=== PATIENT | male | born 1955 | race American Indian/Alaskan Native ===

== ENCOUNTER 2016-11-15 16:36 | Emergency (ER) | payer SELFPAY ==
[2016-11-15 16:56] VITALS: BP 138/87
--- NOTE | 2016-11-16 09:00 | XRay Report ---
Left hand 2 views: History: Injury to left hand. Findings: No articular abnormality. No fracture or dislocation. Impression: No evidence of acute fracture.
== END 2016-11-16 00:37 | disposition left against medical advice (07) ==
LOC: ED 16:36
DX: M79.642 Pain in left hand (principal); Z53.21 Procedure and treatment not carried out due to patient leaving prior to being seen by health care provider

== ENCOUNTER 2017-08-26 17:18 | Inpatient (IN) | payer SELFPAY ==
[2017-08-26] MEDS ORDERED: ASPIRIN PO ONE (17:33)
[2017-08-26 18:27] LABS: Hematocrit 39.3 % (35.5-45.6); Hemoglobin 12.8 gm/dl (11.8-15.2); Mean Corpuscular HGB Conc 33 % (32-34); Mean Corpuscular Hemoglobin 32 pg (28-32); Mean Corpuscular Volume 97 fl (84-94); Platelet Count 370 K/mm3 (140-440); Red Blood Count 4.04 M/mm3 (3.65-5.03); Red Cell Distribution Width 14.8 % (13.2-15.2)
[2017-08-26 18:43] LABS: BUN/Creatinine Ratio 20; Blood Urea Nitrogen 22 mg/dL (9-20); Calcium 9.3 mg/dL (8.4-10.2); Hemolysis Index 10
[2017-08-26 20:08] LABS: Basophils % (Manual) 0 % (0.0-1.8); Total Cells Counted 100
[2017-08-26 20:09] LABS: Anisocytosis 1+; Poikilocytosis 1+
--- NOTE | 2017-08-26 21:09 | Emergency Department Report ---
<HUGO PHILIPPE - Last Filed: 08/26/17 22:00> ED Chest Pain HPI - General Chief Complaint: Chest Pain Stated Complaint: CHEST PAIN Source: patient Mode of arrival: Ambulatory Limitations: No Limitations - History of Present Illness Initial Comments: 62-year-old male with a past medical history CVA, diabetes, hypertension, and elevated cholesterol. Pt presnts to the hospital with complaints of chest pain for 3-4 days. Pain is at the center of his chest, sticking, and sensation is intermittent. Worse with lying supine. He denies pain with deep inspiration, cough, shortness of breath, calf tenderness, or edema. 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 Patient states for the past week his heart rate has also been elevated range between 91 and 107. Patient has used cocaine but not within 10 years. Patient has a history of alcohol use every other day and denies history of withdrawal symptoms. Severity scale (0 -10): 0 - Related Data Home Medications Medication Instructions Recorded Confirmed Last Taken Aspirin [Aspirin TAB] 325 mg PO QDAY 08/13/13 08/13/13 08/12/13 Atorvastatin Calcium [Lipitor] 20 mg PO HS 08/13/13 08/13/13 08/12/13 Lisinopril/Hydrochlorothiazide 20 - 25 mg PO DAILY 08/13/13 08/13/13 08/12/13 [Zestoretic 20-25 mg] Metformin HCl [metFORMIN ER] 1,000 mg PO BID 08/13/13 08/13/13 08/12/13 Sitagliptin Phosphate [Januvia] 100 mg PO DAILY 08/13/13 08/13/13 Unknown Previous Rx's Medication Instructions Recorded Last Taken Type Cephalexin [Keflex] 500 mg PO Q6H #40 capsule 10/14/13 Unknown Rx HYDROcodone/APAP 5-325 [[place] 1 each PO Q6HR PRN #20 tablet 10/14/13 Unknown Rx 5/325 mg] Allergies Allergy/AdvReac Type Severity Reaction Status Date / Time No Known Allergies Allergy Verified 11/15/16 16:51 Heart Score - HEART Score History: Slightly suspicious EKG: Non-specific Age: 45-65 Risk factors: > 3 risk factors or hx of atherosclerotic disease Troponin: < normal limit HEART Score: 4 ED Review of Systems ROS: Stated complaint: CHEST PAIN Other details as noted in HPI Comment: All other systems reviewed and negative ED Past Medical Hx - Past Medical History Previous Medical History?: Yes Hx Hypertension: Yes Hx CVA: Yes Hx Congestive Heart Failure: No Hx Diabetes: Yes Hx Asthma: No Hx COPD: No Hx HIV: No Additional medical history: High Cholesterol - Surgical History Past Surgical History?: No - Social History Smoking Status: Former Smoker Substance Use Type: Alcohol - Medications Home Medications: Home Medications Medication Instructions Recorded Confirmed Last Taken Type Aspirin [Aspirin TAB] 325 mg PO QDAY 08/13/13 08/13/13 08/12/13 History Atorvastatin Calcium [Lipitor] 20 mg PO HS 08/13/13 08/13/13 08/12/13 History Lisinopril/Hydrochlorothiazide 20 - 25 mg PO DAILY 08/13/13 08/13/13 08/12/13 History [Zestoretic 20-25 mg] Metformin HCl [metFORMIN ER] 1,000 mg PO BID 08/13/13 08/13/13 08/12/13 History Sitagliptin Phosphate [Januvia] 100 mg PO DAILY 08/13/13 08/13/13 Unknown History Cephalexin [Keflex] 500 mg PO Q6H #40 capsule 10/14/13 Unknown Rx HYDROcodone/APAP 5-325 [[place] 1 each PO Q6HR PRN #20 tablet 10/14/13 Unknown Rx 5/325 mg] ED Physical Exam - General Limitations: No Limitations - Other Other exam information: General: No limitations, patient is alert in no acute distress Head exam: Atraumatic, normocephalic Eyes exam: Normal appearance, pupils equal reactive to light, extraocular movements intact ENT: Moist mucous membrane, normal oropharynx Neck exam: Normal inspection, full range of motion, no meningismus nontender Respiratory exam: Clear to auscultation bilateral, no wheezes, rales, crackles Cardiovascular: Normal rate and rhythm, normal heart sounds Abdomen: Soft, nondistended, and nontender, with normal bowel sounds, no rebound, or guarding Extremity: Full range of motion normal inspection no deformity, no calf tenderness or edema Back: Normal Inspection, full range of motion, no tenderness Neurologic: Alert, oriented x3, cranial nerves intact, no motor or sensory deficit Psychiatric: normal affect, normal mood Skin: Warm, dry, intact ED Course Vital Signs 08/26/17 08/26/17 08/26/17 17:30 20:08 20:56 Temperature 98.5 F Pulse Rate 109 H Pulse Rate [ 94 H Sitting] Respiratory 18 18 Rate Blood Pressure 149/81 Blood Pressure 140/75 [Sitting] O2 Sat by Pulse 98 Oximetry - Reevaluation(s) Reevaluation #1: 08/26/17 21:51 Patient declined pain medication in the ED. Orthostatics are unremarkable. D- dimer is elevated. Patient be signed out to Nicholas Rogers. Ct angio and thyroid panel pending ARNULFO score - Arnulfo Score Age > 65: (0) No Aspirin use within the Past 7 Days: (0) No 3 or more CAD Risk Factors: (1) Yes 2 or more Angina events in past 24 hrs: (0) No Known CAD with more than 50% Stenosis: (0) No Elevated Cardiac Markers: (0) No ST Deviation Greater than 0.5mm: (0) No ARNULFO Score: 1 ED Medical Decision Making - Lab Data Result diagrams: 08/26/17 18:08 08/26/17 18:08 Lab Results 08/26/17 08/26/17 08/26/17 Range/Units 18:08 18:08 20:27 WBC 7.5 (4.5-11.0) K/mm3 RBC 4.04 (3.65-5.03) M/mm3 Hgb 12.8 (11.8-15.2) gm/dl Hct 39.3 (35.5-45.6) % MCV 97 H (84-94) fl MCH 32 (28-32) pg MCHC 33 (32-34) % RDW 14.8 (13.2-15.2) % Plt Count 370 (140-440) K/mm3 Eos % (Auto) Store Receiving Clerk Add Manual Diff Complete Total Counted 100 Seg Neuts % (Manual) 55.0 (40.0-70.0) % Band Neutrophils % 0 % Lymphocytes % (Manual) 21.0 (13.4-35.0) % Reactive Lymphs % (Man) 0 % Monocytes % (Manual) 8.0 H (0.0-7.3) % Eosinophils % (Manual) 16.0 H (0.0-4.3) % Basophils % (Manual) 0 (0.0-1.8) % Metamyelocytes % 0 % Myelocytes % 0 % Promyelocytes % 0 % Blast Cells % 0 % Nucleated RBC % Not Reportable Seg Neutrophils # Man 4.1 (1.8-7.7) K/mm3 Band Neutrophils # 0.0 K/mm3 Lymphocytes # (Manual) 1.6 (1.2-5.4) K/mm3 Abs React Lymphs (Man) 0.0 K/mm3 Monocytes # (Manual) 0.6 (0.0-0.8) K/mm3 Eosinophils # (Manual) 1.2 H (0.0-0.4) K/mm3 Basophils # (Manual) 0.0 (0.0-0.1) K/mm3 Metamyelocytes # 0.0 K/mm3 Myelocytes # 0.0 K/mm3 Promyelocytes # 0.0 K/mm3 Blast Cells # 0.0 K/mm3 WBC Morphology Not Reportable Hypersegmented Neuts Not Reportable Hyposegmented Neuts Not Reportable Hypogranular Neuts Not Reportable Smudge Cells Not Reportable Toxic Granulation Not Reportable Toxic Vacuolation Not Reportable Dohle Bodies Not Reportable Pelger-Huet Anomaly Not Reportable Ford Rods Not Reportable Platelet Estimate Appears normal Clumped Platelets Not Reportable Plt Clumps, EDTA Not Reportable Large Platelets Not Reportable Giant Platelets Not Reportable Platelet Satelliting Not Reportable Plt Morphology Comment Not Reportable RBC Morphology Not Reportable Dimorphic RBCs Not Reportable Polychromasia Not Reportable Hypochromasia Not Reportable Poikilocytosis 1+ Anisocytosis 1+ Microcytosis Not Reportable Macrocytosis Not Reportable Spherocytes Not Reportable Pappenheimer Bodies Not Reportable Sickle Cells Not Reportable Target Cells Not Reportable Tear Drop Cells Not Reportable Ovalocytes Not Reportable Helmet Cells Not Reportable Reyes-[place]upree Bodies Not Reportable [place] Rings Not Reportable [place] Cells Not Reportable Bite Cells Not Reportable Crenated Cell Not Reportable Elliptocytes Not Reportable Acanthocytes (Spur) Not Reportable Rouleaux Not Reportable Hemoglobin C Crystals Not Reportable Schistocytes Not Reportable Malaria parasites Not Reportable Mauricio Bodies Not Reportable Hem Pathologist Commnt No D-Dimer (0-234) ng/mlDDU Sodium 134 L (137-145) mmol/L Potassium 4.9 (3.6-5.0) mmol/L Chloride 93.8 L (98-107) mmol/L Carbon Dioxide 24 (22-30) mmol/L Anion Gap 21 mmol/L BUN 22 H (9-20) mg/dL Creatinine 1.1 (0.8-1.5) mg/dL Estimated GFR > 60 ml/min BUN/Creatinine Ratio 20 % Glucose 104 H (75-100) mg/dL Calcium 9.3 (8.4-10.2) mg/dL Troponin T < 0.010 < 0.010 (0.00-0.029) ng/mL 08/26/17 Range/Units 21:01 WBC (4.5-11.0) K/mm3 RBC (3.65-5.03) M/mm3 Hgb (11.8-15.2) gm/dl Hct (35.5-45.6) % MCV (84-94) fl MCH (28-32) pg MCHC (32-34) % RDW (13.2-15.2) % Plt Count (140-440) K/mm3 Eos % (Auto) Add Manual Diff Total Counted Seg Neuts % (Manual) (40.0-70.0) % Band Neutrophils % % Lymphocytes % (Manual) (13.4-35.0) % Reactive Lymphs % (Man) % Monocytes % (Manual) (0.0-7.3) % Eosinophils % (Manual) (0.0-4.3) % Basophils % (Manual) (0.0-1.8) % Metamyelocytes % % Myelocytes % % Promyelocytes % % Blast Cells % % Nucleated RBC % Seg Neutrophils # Man (1.8-7.7) K/mm3 Band Neutrophils # K/mm3 Lymphocytes # (Manual) (1.2-5.4) K/mm3 Abs React Lymphs (Man) K/mm3 Monocytes # (Manual) (0.0-0.8) K/mm3 Eosinophils # (Manual) (0.0-0.4) K/mm3 Basophils # (Manual) (0.0-0.1) K/mm3 Metamyelocytes # K/mm3 Myelocytes # K/mm3 Promyelocytes # K/mm3 Blast Cells # K/mm3 WBC Morphology Hypersegmented Neuts Hyposegmented Neuts Hypogranular Neuts Smudge Cells Toxic Granulation Toxic Vacuolation Dohle Bodies Pelger-Huet Anomaly Ford Rods Platelet Estimate Clumped Platelets Plt Clumps, EDTA Large Platelets Giant Platelets Platelet Satelliting Plt Morphology Comment RBC Morphology Dimorphic RBCs Polychromasia Hypochromasia Poikilocytosis Anisocytosis Microcytosis Macrocytosis Spherocytes Pappenheimer Bodies Sickle Cells Target Cells Tear Drop Cells Ovalocytes Helmet Cells Reyes-Dupree Bodies [place] Rings Foster Cells Bite Cells Crenated Cell Elliptocytes Acanthocytes (Spur) Rouleaux Hemoglobin C Crystals Schistocytes Malaria parasites Mauricio Bodies Hem Pathologist Commnt D-Dimer 618.76 H (0-234) ng/mlDDU Sodium (137-145) mmol/L Potassium (3.6-5.0) mmol/L Chloride (98-107) mmol/L Carbon Dioxide (22-30) mmol/L Anion Gap mmol/L BUN (9-20) mg/dL Creatinine (0.8-1.5) mg/dL Estimated GFR ml/min BUN/Creatinine Ratio % Glucose (75-100) mg/dL Calcium (8.4-10.2) mg/dL Troponin T (0.00-0.029) ng/mL - EKG Data -: EKG Interpreted by Ny EKG shows normal: sinus rhythm, axis (qrs 42), QRS complexes (qrsd 94), ST-T waves (no stemi/t inv) Rate: tachycardia (102) - EKG Data When compared to previous EKG there are: no significant change (08/13/13) - Medical Decision Making Pt pain is reproducible intermittent in sternum and slightly right parasternal chest wall pain. pain is exacerbated by lying supine. Patient denies associated symptoms. EKG unchanged from previous. Troponin negative 2. 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 CT angiogram pending. No signs of orthostatics with persistent tachycardia. If CT and have them negative for PE or other significant life-threatening condition. Given patient's elevated heart score he will be admitted for further cardiac workup given his significant cardiac risk factors. - Differential Diagnosis NM, atypical chest pain, PE, arrhythmia, thyroid, dehydration,pericarditis Critical Care Time: No Critical care attestation.: If time is entered above; I have spent that time in minutes in the direct care of this critically ill patient, excluding procedure time. ED Disposition Clinical Impression: Atypical chest pain Disposition: DC- OP ADMIT IP TO THIS HOSP Condition: Stable Instructions: Chest Pain (ED) <ANSELMO ROGERS - Last Filed: 08/27/17 00:09> ED Medical Decision Making - Lab Data Result diagrams: 08/26/17 18:08 08/26/17 18:08 - Medical Decision Making A/P: Atypical Chest pain 1-as directed by Dr. Philippe I followed up CT report and labs. CT negative for PE. Thyroid function tests unremarkable. 2-As pt has HEART Score of 4 will admit to hospital for further cardiac risk stratification and evaluation 3-I contacted on-call hospitalist . Dr. Slade states that she is behind on admissions at this time but will see pt, I will place bridging orders for admission. Dr. Philippe discussed this pt with Dr. Slade earlier before signing out pt to me. 4- patient is in agreement with current clinical plan ED Disposition Is pt being admited?: Yes Does the pt Need Aspirin: Yes
[2017-08-26 21:56] LABS: Free T4 (Free Thyroxine) 0.9 ng/dL (0.76-1.46)
[2017-08-26] MEDS ORDERED: NACL ONE (22:28)
--- NOTE | 2017-08-26 23:14 | Cat Scan Report ---
FINAL REPORT PROCEDURE: CT ANGIO CHEST TECHNIQUE: Computerized tomographic angiography of the chest was performed after the IV injection of iodinated nonionic contrast including image processing. The image data was postprocessed using 2-dimensional multiplanar reformatted (MPR) and 3-dimensional (MIP and/or volume rendered) techniques. HISTORY: chest pain + d-dimer COMPARISON: No prior studies are available for comparison. FINDINGS: Heart and pericardium: Coronary arterial calcification is noted.. Thoracic aorta: Normal. Pulmonary vasculature: Normal. Lymph nodes: No enlarged thoracic lymph nodes. Lungs: Normal. Pleural space: No effusion, thickening, or pneumothorax. Musculoskeletal structures: No significant abnormality. Upper abdominal structures: Moderate amount of residual stool is noted in the visualized abdomen. IMPRESSION: No evidence of pulmonary embolism No acute pulmonary process Coronary arterial calcification Moderate degree residual stool
[2017-08-27] MEDS ORDERED: BABY ASPIRIN PO ONE (00:09)
[2017-08-27] MEDS ORDERED: ULTRAM PO PRN (01:56)
[2017-08-27] MEDS ORDERED: NITROSTAT SL PRN (01:56)
[2017-08-27] MEDS ORDERED: SODIUM CHLORIDE FLUSH SYRINGE 10 ML IV PRN (01:56)
[2017-08-27] MEDS ORDERED: NACL 0.9% 1000 ML 1,000 ML IV SCH (03:00)
--- NOTE | 2017-08-27 03:04 | History and Physical Report ---
History of Present Illness Date of examination: 08/27/17 Date of admission: 08/27/17 00:10 Chief complaint: chest pain History of present illness: Patient is a 62-year-old -[place] male, who presented to the ED on account of few hours history of right-sided chest pain. He described it as dull in character, rated 4/10, nonradiating and constant in duration. No known aggravating or relieving factors. He has associated diaphoresis and palpitations. He denies fever or chills, cough, leg swelling, orthopnea or PND. No headaches, nausea, vomiting, dizziness, syncope or loss of consciousness. Past History Past Medical History: diabetes, hypertension, other (HLD, CVA) Past Surgical History: No surgical history Social history: alcohol abuse (for 50 years), other (an ex-smoker, quit 25 years ago. He denies illicit drug use) Family history: other (reviewed and noncontributory) Medications and Allergies Allergies Allergy/AdvReac Type Severity Reaction Status Date / Time No Known Allergies Allergy Verified 11/15/16 16:51 Home Medications Medication Instructions Recorded Confirmed Last Taken Type Aspirin [Aspirin TAB] 325 mg PO QDAY 08/13/13 08/13/13 08/12/13 History Atorvastatin Calcium [Lipitor] 20 mg PO HS 08/13/13 08/13/13 08/12/13 History Lisinopril/Hydrochlorothiazide 20 - 25 mg PO DAILY 08/13/13 08/13/13 08/12/13 History [Zestoretic 20-25 mg] Metformin HCl [metFORMIN ER] 1,000 mg PO BID 08/13/13 08/13/13 08/12/13 History Sitagliptin Phosphate [Januvia] 100 mg PO DAILY 08/13/13 08/13/13 Unknown History Cephalexin [Keflex] 500 mg PO Q6H #40 capsule 10/14/13 Unknown Rx HYDROcodone/APAP 5-325 [[place] 1 each PO Q6HR PRN #20 tablet 10/14/13 Unknown Rx 5/325 mg] Active Meds: Active Medications Aspirin (Baby Aspirin) 81 mg PO QDAY JANESSA Atorvastatin Calcium (Lipitor) 40 mg PO QHS JANESSA Sodium Chloride (Nacl 0.9% 1000 Ml) 1,000 mls @ 100 mls/hr IV DIRECT JANESSA Last Admin: 08/27/17 02:37 Dose: 100 mls/hr Nitroglycerin (Nitrostat) 0.4 mg SL Q5M PRN PRN Reason: Chest Pain Sodium Chloride (Sodium Chloride Flush Syringe 10 Ml) 10 ml IV PRN PRN PRN Reason: LINE FLUSH Last Admin: 08/27/17 02:37 Dose: 10 ml Tramadol HCl (Ultram) 50 mg PO Q6H PRN PRN Reason: Pain, Moderate (4-6) Review of Systems All systems: negative (except as documented in the HPI, all other systems were reviewed and negative) Exam - Constitutional Vitals: Temp Pulse Resp BP Pulse Ox 98.4 F 97 H 18 158/95 97 08/27/17 01:45 08/27/17 01:45 08/27/17 01:45 08/27/17 01:45 08/27/17 01:45 General appearance: Present: no acute distress, well-nourished - EENT Eyes: Present: PERRL, EOM intact ENT: hearing intact, clear oral mucosa - Neck Neck: Present: supple, normal ROM - Respiratory Respiratory effort: normal Respiratory: bilateral: CTA - Cardiovascular Rhythm: regular Heart Sounds: Present: S1 & S2. Absent: rub, click - Extremities Extremities: pulses symmetrical, No edema Peripheral Pulses: within normal limits - Abdominal General gastrointestinal: Present: soft, non-tender, non-distended, normal bowel sounds Localized gastrointestinal: tender: midline - Integumentary Integumentary: Present: clear, warm, dry - Musculoskeletal Musculoskeletal: gait normal, strength equal bilaterally - Psychiatric Psychiatric: appropriate mood/affect, intact judgment & insight - Neurologic Neurologic: CNII-XII intact, moves all extremities Results - Labs CBC & Chem 7: 08/26/17 18:08 08/26/17 18:08 Labs: Laboratory Last Values WBC 7.5 K/mm3 (4.5-11.0) 08/26/17 18:08 RBC 4.04 M/mm3 (3.65-5.03) 08/26/17 18:08 Hgb 12.8 gm/dl (11.8-15.2) 08/26/17 18:08 Hct 39.3 % (35.5-45.6) 08/26/17 18:08 MCV 97 fl (84-94) H 08/26/17 18:08 MCH 32 pg (28-32) 08/26/17 18:08 MCHC 33 % (32-34) 08/26/17 18:08 RDW 14.8 % (13.2-15.2) 08/26/17 18:08 Plt Count 370 K/mm3 (140-440) 08/26/17 18:08 Eos % (Auto) Depalletizer Operator 08/26/17 18:08 Add Manual Diff Complete 08/26/17 18:08 Total Counted 100 08/26/17 18:08 Seg Neuts % (Manual) 55.0 % (40.0-70.0) 08/26/17 18:08 Band Neutrophils % 0 % 08/26/17 18:08 Lymphocytes % (Manual) 21.0 % (13.4-35.0) 08/26/17 18:08 Reactive Lymphs % (Man) 0 % 08/26/17 18:08 Monocytes % (Manual) 8.0 % (0.0-7.3) H 08/26/17 18:08 Eosinophils % (Manual) 16.0 % (0.0-4.3) H 08/26/17 18:08 Basophils % (Manual) 0 % (0.0-1.8) 08/26/17 18:08 Metamyelocytes % 0 % 08/26/17 18:08 Myelocytes % 0 % 08/26/17 18:08 Promyelocytes % 0 % 08/26/17 18:08 Blast Cells % 0 % 08/26/17 18:08 Nucleated RBC % Not Reportable 08/26/17 18:08 Seg Neutrophils # Man 4.1 K/mm3 (1.8-7.7) 08/26/17 18:08 Band Neutrophils # 0.0 K/mm3 08/26/17 18:08 Lymphocytes # (Manual) 1.6 K/mm3 (1.2-5.4) 08/26/17 18:08 Abs React Lymphs (Man) 0.0 K/mm3 08/26/17 18:08 Monocytes # (Manual) 0.6 K/mm3 (0.0-0.8) 08/26/17 18:08 Eosinophils # (Manual) 1.2 K/mm3 (0.0-0.4) H 08/26/17 18:08 Basophils # (Manual) 0.0 K/mm3 (0.0-0.1) 08/26/17 18:08 Metamyelocytes # 0.0 K/mm3 08/26/17 18:08 Myelocytes # 0.0 K/mm3 08/26/17 18:08 Promyelocytes # 0.0 K/mm3 08/26/17 18:08 Blast Cells # 0.0 K/mm3 08/26/17 18:08 WBC Morphology Not Reportable 08/26/17 18:08 Hypersegmented Neuts Not Reportable 08/26/17 18:08 Hyposegmented Neuts Not Reportable 08/26/17 18:08 Hypogranular Neuts Not Reportable 08/26/17 18:08 Smudge Cells Not Reportable 08/26/17 18:08 Toxic Granulation Not Reportable 08/26/17 18:08 Toxic Vacuolation Not Reportable 08/26/17 18:08 Dohle Bodies Not Reportable 08/26/17 18:08 Pelger-Huet Anomaly Not Reportable 08/26/17 18:08 Ford Rods Not Reportable 08/26/17 18:08 Platelet Estimate Appears normal 08/26/17 18:08 Clumped Platelets Not Reportable 08/26/17 18:08 Plt Clumps, EDTA Not Reportable 08/26/17 18:08 Large Platelets Not Reportable 08/26/17 18:08 Giant Platelets Not Reportable 08/26/17 18:08 Platelet Satelliting Not Reportable 08/26/17 18:08 Plt Morphology Comment Not Reportable 08/26/17 18:08 RBC Morphology Not Reportable 08/26/17 18:08 Dimorphic RBCs Not Reportable 08/26/17 18:08 Polychromasia Not Reportable 08/26/17 18:08 Hypochromasia Not Reportable 08/26/17 18:08 Poikilocytosis 1+ 08/26/17 18:08 Anisocytosis 1+ 08/26/17 18:08 Microcytosis Not Reportable 08/26/17 18:08 Macrocytosis Not Reportable 08/26/17 18:08 Spherocytes Not Reportable 08/26/17 18:08 Pappenheimer Bodies Not Reportable 08/26/17 18:08 Sickle Cells Not Reportable 08/26/17 18:08 Target Cells Not Reportable 08/26/17 18:08 Tear Drop Cells Not Reportable 08/26/17 18:08 Ovalocytes Not Reportable 08/26/17 18:08 Helmet Cells Not Reportable 08/26/17 18:08 Reyes-[place] Bodies Not Reportable 08/26/17 18:08 [place] Rings Not Reportable 08/26/17 18:08 [place] Cells Not Reportable 08/26/17 18:08 Bite Cells Not Reportable 08/26/17 18:08 Crenated Cell Not Reportable 08/26/17 18:08 Elliptocytes Not Reportable 08/26/17 18:08 Acanthocytes (Spur) Not Reportable 08/26/17 18:08 Rouleaux Not Reportable 08/26/17 18:08 Hemoglobin C Crystals Not Reportable 08/26/17 18:08 Schistocytes Not Reportable 08/26/17 18:08 Malaria parasites Not Reportable 08/26/17 18:08 Mauricio Bodies Not Reportable 08/26/17 18:08 Hem Pathologist Commnt No 08/26/17 18:08 D-Dimer 618.76 ng/mlDDU (0-234) H 08/26/17 21:01 Sodium 134 mmol/L (137-145) L 08/26/17 18:08 Potassium 4.9 mmol/L (3.6-5.0) 08/26/17 18:08 Chloride 93.8 mmol/L (98-107) L 08/26/17 18:08 Carbon Dioxide 24 mmol/L (22-30) 08/26/17 18:08 Anion Gap 21 mmol/L 08/26/17 18:08 BUN 22 mg/dL (9-20) H 08/26/17 18:08 Creatinine 1.1 mg/dL (0.8-1.5) 08/26/17 18:08 Estimated GFR > 60 ml/min 08/26/17 18:08 BUN/Creatinine Ratio 20 % 08/26/17 18:08 Glucose 104 mg/dL (75-100) H 08/26/17 18:08 Calcium 9.3 mg/dL (8.4-10.2) 08/26/17 18:08 Troponin T < 0.010 ng/mL (0.00-0.029) 08/26/17 23:44 TSH 0.611 mlU/mL (0.270-4.200) 08/26/17 21:16 Free T4 0.90 ng/dL (0.76-1.46) 08/26/17 21:16 Assessment and Plan Assessment and plan: Chest pain, r/o ACS -Serial troponin levels are negative -Will do further investigative testing with stress test [id number] diabetes mellitus type 2 -We will place patient on SSI Elevated d-dimer -CTA chest is negative for PE Hypertension, stable Hyperlipidemia -On statin History of stroke without residual weakness -Stable 35 minutes spent in coordinating care
[2017-08-27] MEDS ORDERED: D50W (25GM) Syringe IV PRN (03:08)
[2017-08-27] MEDS ORDERED: APRESOLINE IV PRN (03:11)
[2017-08-27 07:42] LABS: Chol/HDL Ratio 4.89 %
[2017-08-27] MEDS: HumuLIN R SUB-Q SCH ×4 (08:00→22:06)
[2017-08-27] MEDS ORDERED: LEXISCAN IV ONE ×2 (10:06→10:10)
--- NOTE | 2017-08-27 12:04 | Treadmill Report ---
MYOCARDIAL PERFUSION IMAGING STUDY Resting images revealed homogeneous radioisotope activity and there was slightly increased gut uptake. On post-Lexiscan images, there was diminished radioisotope activity noted in the inferior wall, short axis and vertical axis. There is no transient ischemic dilatation. It was 1.15. On gated scan, there is no wall motion abnormality. Ejection fraction was noted to be 63%. IMPRESSION: This test is mildly positive for inferior wall ischemia; however, artifact cannot be entirely excluded. Ejection fraction was normal with 63%. Clinical correlation and further workup if indicated. JOB# [id number] REUBEN/BOAZ
--- NOTE | 2017-08-27 12:26 | Consultation ---
History of Present Illness Consult date: 08/27/17 Requesting physician: RAVEN JOHNSON Consult reason: chest pain, other (abnormal stress test) History of present illness: The pt is a 62-year-old male with a past medical history significant for CVA, diabetes, hypertension, HLP, daily ETOH use, former tobacco use. He is previously unknown to our practice. He presented with c/o elevated BPs and chest pain for 3-4 days prior to arrival. He describes the pain as a midsternal , nonradiating, nonexertional intermittent stabbing pain which is worse when he lies on his side. He denies any SOB, palpitations, n/v, diaphoresis, dizziness or syncope. Patient has used cocaine but not within 10 years. Pt underwent lexiscan MPI stress test this AM which was positive for mild inferior ischemia and thus cardiology has been consulted. Past History Past Medical History: diabetes, hypertension, hyperlipidemia, stroke Past Surgical History: No surgical history Social history: smoking (former), alcohol abuse (for 50 years). denies: prescription drug abuse Medications and Allergies Allergies Allergy/AdvReac Type Severity Reaction Status Date / Time No Known Allergies Allergy Verified 11/15/16 16:51 Home Medications Medication Instructions Recorded Confirmed Last Taken Type Aspirin [Aspirin TAB] 325 mg PO QDAY 08/13/13 08/27/17 1 Day Ago History ~08/26/17 Atorvastatin Calcium [Lipitor] 20 mg PO HS 08/13/13 08/27/17 1 Day Ago History ~08/26/17 Lisinopril/Hydrochlorothiazide 20 - 25 mg PO DAILY 08/13/13 08/27/17 1 Day Ago History [Zestoretic 20-25 mg] ~08/26/17 Metformin HCl [metFORMIN ER] 1,000 mg PO BID 08/13/13 08/27/17 1 Day Ago History ~08/26/17 Sitagliptin Phosphate [Januvia] 100 mg PO DAILY 08/13/13 08/27/17 1 Day Ago History ~08/26/17 Active Meds: Active Medications Aspirin (Baby Aspirin) 81 mg PO QDAY JANESSA Atorvastatin Calcium (Lipitor) 40 mg PO QHS JANESSA Dextrose (D50w (25gm) Syringe) 50 ml IV PRN PRN PRN Reason: Hypoglycemia Hydralazine HCl (Apresoline) 10 mg IV Q4H PRN PRN Reason: Blood Pressure Sodium Chloride (Nacl 0.9% 1000 Ml) 1,000 mls @ 100 mls/hr IV DIRECT JANESSA Last Admin: 08/27/17 02:37 Dose: 100 mls/hr Insulin Human Regular (Humulin R) 0 units SUB-Q ACHS JANESSA; Protocol Nitroglycerin (Nitrostat) 0.4 mg SL Q5M PRN PRN Reason: Chest Pain Sodium Chloride (Sodium Chloride Flush Syringe 10 Ml) 10 ml IV PRN PRN PRN Reason: LINE FLUSH Last Admin: 08/27/17 02:37 Dose: 10 ml Tramadol HCl (Ultram) 50 mg PO Q6H PRN PRN Reason: Pain, Moderate (4-6) Review of Systems Constitutional: no weight loss, no weight gain, no fever, no chills, no sweats Ears, nose, mouth and throat: no ear pain, no nose pain, no sinus pressure, no sinus pain Cardiovascular: chest pain, high blood pressure, no orthopnea, no palpitations, no rapid/irregular heart beat, no edema, no syncope, no lightheadedness, no shortness of breath, no dyspnea on exertion, no paroxysmal nocturnal dyspnea, no leg edema Respiratory: no cough, no shortness of breath, no dyspnea on exertion, no congestion, no wheezing, no pain on inspiration Gastrointestinal: no abdominal pain, no nausea, no vomiting, no diarrhea, no constipation, no change in bowel habits Genitourinary Male: no dysuria, no hematuria, no flank pain, no discharge, no urinary frequency, no urinary hesitancy Musculoskeletal: no neck stiffness, no neck pain, no shooting arm pain, no arm numbness/tingling, no low back pain, no shooting leg pain, no leg numbness/ tingling, no redness of joints Integumentary: no rash, no pruritis, no redness, no sores, no wounds, no jaundice Neurological: no head injury, no paralysis, no weakness, no parathesias, no numbness, no tingling, no seizures, no syncope Psychiatric: no anxiety Endocrine: no cold intolerance, no heat intolerance Hematologic/Lymphatic: no easy bruising, no easy bleeding, no lymphadenopathy Allergic/Immunologic: no urticaria, no wheezing, no persistent infections Physical Examination Vital Signs Temp Pulse Resp BP Pulse Ox 98.5 F 109 H 18 149/81 98 08/26/17 17:30 08/26/17 17:30 08/26/17 17:30 08/26/17 17:30 08/26/17 17:30 General appearance: no acute distress HEENT: Positive: PERRL, Normocephaly, Mucus Membranes Moist Neck: Positive: neck supple, trachea midline Cardiac: Positive: Reg Rate and Rhythm, S1/S2 Lungs: Positive: clear to auscultation Neuro: Positive: Grossly Intact, Cranial Nerve 2-12 Intact Abdomen: Positive: Soft. Negative: Tender Skin: Positive: Clear. Negative: Rash, Wound Musculoskeletal: No Fluid Collection, No Pain, Normal Range of Motion Extremities: Absent: edema Results 08/26/17 18:08 08/26/17 18:08 Lipids 08/27/17 Range/Units 06:33 Triglycerides 97 (2-149) mg/dL Cholesterol 230 H (50-199) mg/dL HDL Cholesterol 47 (40-59) mg/dL Cholesterol/HDL Ratio 4.89 % CBC 08/26/17 Range/Units 18:08 WBC 7.5 (4.5-11.0) K/mm3 RBC 4.04 (3.65-5.03) M/mm3 Hgb 12.8 (11.8-15.2) gm/dl Hct 39.3 (35.5-45.6) % Plt Count 370 (140-440) K/mm3 Comprehensive Metabolic Panel 08/26/17 Range/Units 18:08 Sodium 134 L (137-145) mmol/L Potassium 4.9 (3.6-5.0) mmol/L Chloride 93.8 L (98-107) mmol/L Carbon Dioxide 24 (22-30) mmol/L BUN 22 H (9-20) mg/dL Creatinine 1.1 (0.8-1.5) mg/dL Glucose 104 H (75-100) mg/dL Calcium 9.3 (8.4-10.2) mg/dL - Imaging and Cardiology Echo: pending EKG: report reviewed, image reviewed EKG interpretations - Telemetry EKG Rhythm: Sinus Rhythm - EKG Sinus rhythms and dysrhythmias: sinus rhythm Assessment and Plan Assessment: Chest pain, atypical - currently resolved; ECG with NAF; Adarsh negative for AMI x 2 sets Abnormal stress test - showed mild inferior ischemia, EF 63% HTN HLP DM H/o CVA ETOH use / former tobacco use - cessation encouraged Plan: Cont ASA and statin. Optimize anti-hypertensive regimen - resume home lisinopril and initiate lopressor. Await echo. Proceed with coronary angiography in AM for definitive diagnosis. Indications, potential risks and benefits of LHC reviewed with pt and he is agreeable to proceed. NPO after MN. The patient has been seen in conjunction with Dr. Ling who agrees with the assessment and plan of care.
[2017-08-27] MEDS ORDERED: NACL 0.9% 500 ML 500 ML IV SCH (14:00)
--- NOTE | 2017-08-27 18:06 | Event Note ---
Date: 08/27/17 Patient admitted this morning for chest pain, cardiac stress test was positive, cardiology consulted and patient is going to have cardiac cath tomorrow. Continue management per H&P.
[2017-08-27] MEDS: ZESTRIL PO SCH (19:38)
[2017-08-27] MEDS: LOPRESSOR PO SCH ×2 (19:41→22:00)
[2017-08-28 05:53] LABS: Basophils # (Auto) 0.1 K/mm3 (0.0-0.1); Basophils % (Auto) 1.7 % (0.0-1.8); Eosinophils # (Auto) 0.8 K/mm3 (0.0-0.4); Eosinophils % (Auto) 9.6 % (0.0-4.3); Hematocrit 38.1 % (35.5-45.6); Lymphocytes # (Auto) 1.6 K/mm3 (1.2-5.4); Lymphocytes % (Auto) 20.1 % (13.4-35.0); Mean Corpuscular HGB Conc 34 % (32-34); Mean Corpuscular Hemoglobin 33 pg (28-32); Mean Corpuscular Volume 96 fl (84-94); Monocytes % (Auto) 12.3 % (0.0-7.3); Platelet Count 340 K/mm3 (140-440); Red Blood Count 3.97 M/mm3 (3.65-5.03); Red Cell Distribution Width 15.2 % (13.2-15.2)
[2017-08-28 06:00] LABS: INR 0.93 (0.87-1.13)
[2017-08-28 06:15] LABS: BUN/Creatinine Ratio 18; Blood Urea Nitrogen 16 mg/dL (9-20); Calcium 8.7 mg/dL (8.4-10.2); Hemolysis Index 5
[2017-08-28] MEDS ORDERED: ASPIRIN ONE (07:44)
[2017-08-28] MEDS ORDERED: HEPARIN 10,000 UNITS/10 ML ONE (07:52)
[2017-08-28] MEDS ORDERED: HEPARIN/NS 5000 UNIT/500ML(CATH LAB) 1,000 ML IR ONE (07:52)
[2017-08-28] MEDS ORDERED: CALAN ONE (07:52)
[2017-08-28] MEDS ORDERED: XYLOCAINE 2% INFILTRATI ONE (07:52)
[2017-08-28] MEDS ORDERED: NITROGLYCERIN SYRINGE 3 ML ONE (07:52)
[2017-08-28] MEDS ORDERED: VERSED ONE (07:53)
[2017-08-28] MEDS ORDERED: SUBLIMAZE ONE (07:53)
[2017-08-28] MEDS ORDERED: ANGIOMAX IV ONE (08:25)
[2017-08-28] MEDS ORDERED: NACL 0.9% 0 ML ONE (08:25)
[2017-08-28] MEDS: HumuLIN R SUB-Q SCH (08:39)
[2017-08-28 08:52] VITALS: BP 135/77
--- NOTE | 2017-08-28 09:23 | Cardiac Catherization Report ---
CARDIAC CATHETERIZATION REFERRING PHYSICIAN: Hospitalist service. INDICATION FOR PROCEDURE: The patient is a very pleasant 62-year-old -[place] gentleman with multiple risk factors, who presents with unstable angina, found to have an abnormal stress test with significant anterior ischemia, referred for left heart catheterization. Risks, benefits, and alternatives discussed at length prior obtaining informed consent. PROCEDURE IN DETAIL: The patient was brought to the manager cardiac cath in a postabsorptive state, prepped and draped in sterile fashion. Oliver's test in right hand was normal. A 2 mL of 2% lidocaine used to anesthetize the right wrist. A standard Uzbek hydrophilic sheath used to cannulate the right radial artery via modified Seldinger technique. All exchanges performed to exchange a J-tip guidewire. JL3.5 catheter used to engage left main. No dampening or ventricularization. Cineangiography performed in all projections. JR4 catheter used to cross the aortic valve under fluoroscopic guidance. Left ventriculography performed in 30 GARCIA and 30 KUWAITI projections via hand injections. Catheter flushed. Manual pullback performed with continuous pressure monitoring. Catheter used to engage the right coronary. No dampening or ventricularization. Cineangiography performed in all projections. Next, catheter removed from the body of wire, sheath removed. Manual pressure used to achieve hemostasis. I directly supervised the administration of moderate sedation with fentanyl and Versed from 08:17 to 08:40 am. DATA: Aortic pressure is 115/60, LV pressure is 115. LVP of 15 mmHg. Left ventriculography revealed normal systolic performance with estimated ejection fraction of 55% -60%. No evidence of aortic stenosis. CORONARY ANATOMY: This is a right dominant system. Left main is without significant disease. It bifurcates in left anterior descending and left circumflex. LAD is a moderate sized vessel, courses anterior intergroove, wraps around the apex. There is a long calcific stenosis from the ostial LAD to the mid LAD. Maximal narrowing of 80-90% complex lesion involving a small first diagonal. Circumflex is small, mild luminal irregularities, but no discrete stenosis identified. Right coronary is a moderate sized vessel, courses the AV groove, distally bifurcates in the posterior and posterolateral branches. The RCA has diffuse significant disease. The whole right coronary is calcified, 90% proximal disease, 90% mid disease and tandem 90% distal disease, diffuse long segment disease. CONCLUSIONS: 1. Severe 2-vessel coronary artery disease with a long complex calcified ostial and proximal LAD stenosis and a long diffuse right coronary from proximal to distal disease. 2. Preserved left ventricular systolic performance, estimated ejection fraction of 55-60%. 3. No evidence of aortic stenosis. 4. Normal LVEDP. Given the diffuse nature of his disease, proximal LAD disease, diabetes, I believe his best option is for complete revascularization with coronary bypass surgery. Results reviewed with the patient. All questions and concerns were addressed. The patient will be transferred to [facility] with Dr. Urban for possible CABG. He is clinically stable, chest pain free at this point. JOB# [id number] JOSELYN/BOAZ
[2017-08-28] MEDS ORDERED: ASPIRIN PO SCH (10:00)
[2017-08-28] MEDS ORDERED: BABY ASPIRIN PO SCH (10:00)
[2017-08-28] MEDS: ZESTRIL PO SCH (10:34)
[2017-08-28] MEDS: LOPRESSOR PO SCH (10:34)
--- NOTE | 2017-08-28 10:45 | Discharge Summary ---
Providers - Providers Date of Admission: 08/27/17 00:10 Date of discharge: 08/28/17 Attending physician: RAVEN JOHNSON MD 08/27/17 13:10 Consult to Physician [CONS] Routine Comment: Consulting Provider: KESHIA LOPEZ Physician Instructions: [facility] Reason For Exam: positive cardiac stress test 08/28/17 08:43 Consult to Cardiac Rehabilitation [CONS] Routine Reason For Exam: Cardiac Rehab Evaluation Primary care physician: BRUNO LEONARDO MD Hospitalization Reason for admission: Chest pain Condition: Stable Pertinent studies: Abnormal cardiac stress test Three vessel occlusion Disposition: DC/TX-70 ANOTHER TYPE HLTHCARE Time spent for discharge: 31 minutes - Discharge Diagnoses (1) Abnormal stress test Status: Acute (2) Triple vessel disease of the heart Status: Acute Core Measure Documentation - Core Measures Any of the following diagnoses?: acute VT - Acute VT Discharge Requirements Aspirin at discharge: Yes JESSY/ARB for LVSD if EF <40%: Yes Beta vilma at discharge: Yes Statin for LDL = or >100 mg/dl on DC: Yes Exam - Physical Exam Narrative exam: Not in cardiopulmonary distress. The patient appeared well nourished and normally developed. Vital signs as documented. Head exam is unremarkable. No scleral icterus . Neck is without jugular venous distension, thyromegaly, or carotid bruits. Lungs are clear to auscultation. Cardiac exam reveals regular rate and Rhythm. First and second heart sounds normal. No murmurs, rubs or gallops. Abdominal exam reveals normal bowel sounds, no masses, no organomegaly and no aortic enlargement. Extremities are nonedematous and both femoral and pedal pulses are normal. [employer]: Alert and oriented 3. No focal weakness. - Constitutional Vitals: Temp Pulse Resp BP Pulse Ox 98.5 F 77 13 135/77 97 08/28/17 04:33 08/28/17 08:45 08/28/17 08:45 08/28/17 08:45 08/28/17 08:45 Plan Activity: no restrictions Weight Bearing Status: Full Weight Bearing Diet: low cholesterol, low salt Additional Instructions: Transfer to [place] for CABG Follow up with: BRUNO LEONARDO MD [Primary Care Provider] - 3-5 Days
--- NOTE | 2017-08-28 11:08 | Progress Note ---
Assessment and Plan Assessment: CAD Chest pain, atypical - currently resolved; ECG with NAF; Adarsh negative for AMI x 2 sets HTN HLP DM H/o CVA ETOH use / former tobacco use - cessation encouraged Plan: Pt s/p [facility] this AM which revealed severe 2 vessel CAD with long complex calcified ostial and prox LAD stenosis and a long diffuse right coronary from proximal to distal disease, EF 55-60%. Pt is to be transferred to [place] for possible CABG per Dr. Urban. Assessment and plan reviewed with pt and pt's family at bedside. The patient has been seen in conjunction with Dr. Nafisa Malik who agrees with the assessment and plan of care. Subjective Date of service: 08/28/17 Principal diagnosis: cp Interval history: pt for [facility] today. no current complaints. Objective Last Vital Signs Temp 98.5 F 08/28/17 04:33 Pulse 77 08/28/17 08:45 Resp 13 08/28/17 08:45 BP 135/77 08/28/17 08:45 Pulse Ox 97 08/28/17 08:45 - Physical Examination General: No Apparent Distress HEENT: Positive: PERRL, Normocephaly, Mucus Membranes Moist Neck: Positive: neck supple, trachea midline Cardiac: Positive: Reg Rate and Rhythm, S1/S2 Lungs: Positive: clear to auscultation Neuro: Positive: Grossly Intact, Cranial Nerve 2-12 Intact Abdomen: Positive: Soft. Negative: Tender Skin: Positive: Clear. Negative: Rash, Wound Musculoskeletal: No Fluid Collection, No Pain, Normal Range of Motion Extremities: Absent: edema - Labs and Meds Coagulation 08/28/17 Range/Units 04:46 PT 12.9 (12.2-14.9) Sec. INR 0.93 (0.87-1.13) CBC 08/28/17 Range/Units 04:46 WBC 7.8 (4.5-11.0) K/mm3 RBC 3.97 (3.65-5.03) M/mm3 Hgb 13.0 (11.8-15.2) gm/dl Hct 38.1 (35.5-45.6) % Plt Count 340 (140-440) K/mm3 Lymph # 1.6 (1.2-5.4) K/mm3 [place] # 1.0 H (0.0-0.8) K/mm3 Eos # 0.8 H (0.0-0.4) K/mm3 Baso # 0.1 (0.0-0.1) K/mm3 Comprehensive Metabolic Panel 08/28/17 Range/Units 04:46 Sodium 136 L (137-145) mmol/L Potassium 4.0 (3.6-5.0) mmol/L Chloride 97.0 L (98-107) mmol/L Carbon Dioxide 23 (22-30) mmol/L BUN 16 (9-20) mg/dL Creatinine 0.9 (0.8-1.5) mg/dL Glucose 115 H (75-100) mg/dL Calcium 8.7 (8.4-10.2) mg/dL - Imaging and Cardiology EKG: report reviewed, image reviewed Echo: pending - EKG Sinus rhythms and dysrhythmias: sinus rhythm
== END 2017-08-28 12:25 | disposition other institution (70) | DRG 287 ==
LOC: ED 17:18 → 4A 08-27 00:10
PROVIDERS: ADMIT Internal Medicine; ATTEND Internal Medicine
PROC: 4A023N7 Measurement of Cardiac Sampling and Pressure, Left Heart, Percutaneous Approach (ICD-10-PCS; principal; 2017-08-28)
PROC: B2111ZZ Fluoroscopy of Multiple Coronary Arteries using Low Osmolar Contrast (ICD-10-PCS; 2017-08-28)
PROC: B2151ZZ Fluoroscopy of Left Heart using Low Osmolar Contrast (ICD-10-PCS; 2017-08-28)
DX: I25.110 Atherosclerotic heart disease of native coronary artery with unstable angina pectoris (principal); E78.5 Hyperlipidemia, unspecified; I10 Essential (primary) hypertension; E11.9 Type 2 diabetes mellitus without complications; F10.10 Alcohol abuse, uncomplicated; Z87.891 Personal history of nicotine dependence; Z79.82 Long term (current) use of aspirin; Z79.899 Other long term (current) drug therapy; Z86.73 Personal history of transient ischemic attack (TIA), and cerebral infarction without residual deficits; Z71.6 Tobacco abuse counseling; I25.9 Chronic ischemic heart disease, unspecified; E78.00 Pure hypercholesterolemia, unspecified; Z71.41 Alcohol abuse counseling and surveillance of alcoholic; Z79.4 Long term (current) use of insulin
CPT/HCPCS: 36415; 71275; 78452; 80048; 80061; 82962; 84439; 84443; 84484; 85007; 85025; 85379; 85610; 93005; 93010; 93017; 93306; 93458; A9270-GY; A9502; C1894; J0583; J1644; J1815; J2250; J2785; J3010; J7030; Q9967

== ENCOUNTER 2018-01-09 11:04 | Emergency (ER) | payer SELFPAY ==
[2018-01-09] MEDS ORDERED: LOPRESSOR PO ONE (11:17)
--- NOTE | 2018-01-09 12:38 | Emergency Department Report ---
ED General Adult HPI - General Chief complaint: High BP Stated complaint: BP Time Seen by Provider: 01/09/18 11:10 Source: patient, RN notes reviewed, old records reviewed Mode of arrival: Ambulatory Limitations: No Limitations - History of Present Illness Initial comments: This is a 62-year-old male who is not known to this provider previously. His past medical history includes heart disease, hypertension, diabetes, status post bypass. He presents to the ER with a complaint of painless high blood pressure. He reports not taking his metoprolol this morning. He reports drinking a large cup of coffee this morning. He denies headache, neck pain, chest pain, abdominal pain, shortness of breath, dizziness, lightheadedness, weakness, numbness, ataxia. -: This morning Quality: constant Consistency: constant Improves with: none Worsens with: none Associated Symptoms: denies other symptoms - Related Data Home Medications Medication Instructions Recorded Confirmed Last Taken Aspirin [Aspirin BABY CHEW TAB] 162 mg PO QDAY 01/09/18 01/09/18 Unknown Clopidogrel Bisulfate [Plavix] 75 mg PO DAILY 01/09/18 01/09/18 Unknown Glimepiride [Amaryl] 1 mg PO QDAY 01/09/18 01/09/18 Unknown Metoprolol [Lopressor TAB] 50 mg PO Q12H 01/09/18 01/09/18 Unknown Pravastatin [Pravachol] 20 mg PO DAILY 01/09/18 01/09/18 Unknown hydroCHLOROthiazide [HCTZ] 25 mg PO QDAY 01/09/18 01/09/18 Unknown Allergies Allergy/AdvReac Type Severity Reaction Status Date / Time No Known Allergies Allergy Verified 11/15/16 16:51 ED Review of Systems ROS: Stated complaint: BP Other details as noted in HPI Comment: All other systems reviewed and negative ED Past Medical Hx - Past Medical History Previous Medical History?: Yes Hx Hypertension: Yes Hx CVA: Yes Hx Congestive Heart Failure: No Hx Diabetes: Yes Hx Asthma: No Hx COPD: No Hx HIV: No Additional medical history: High Cholesterol - Surgical History Past Surgical History?: Yes Hx Coronary Stent: Yes (2017) - Social History Smoking Status: Former Smoker Substance Use Type: Alcohol - Medications Home Medications: Home Medications Medication Instructions Recorded Confirmed Last Taken Type Aspirin [Aspirin BABY CHEW TAB] 162 mg PO QDAY 01/09/18 01/09/18 Unknown History Clopidogrel Bisulfate [Plavix] 75 mg PO DAILY 01/09/18 01/09/18 Unknown History Glimepiride [Amaryl] 1 mg PO QDAY 01/09/18 01/09/18 Unknown History Metoprolol [Lopressor TAB] 50 mg PO Q12H 01/09/18 01/09/18 Unknown History Pravastatin [Pravachol] 20 mg PO DAILY 01/09/18 01/09/18 Unknown History hydroCHLOROthiazide [HCTZ] 25 mg PO QDAY 01/09/18 01/09/18 Unknown History ED Physical Exam - General Limitations: No Limitations General appearance: alert, in no apparent distress - Head Head exam: Present: atraumatic, normocephalic - Eye Eye exam: Present: normal appearance, EOMI. Absent: nystagmus - ENT ENT exam: Present: normal exam, normal orophraynx, mucous membranes moist, normal external ear exam - Neck Neck exam: Present: normal inspection, full ROM - Respiratory Respiratory exam: Present: normal lung sounds bilaterally. Absent: respiratory distress - Cardiovascular Cardiovascular Exam: Present: normal rhythm, tachycardia, normal heart sounds. Absent: systolic murmur, diastolic murmur, rubs, gallop - GI/Abdominal GI/Abdominal exam: Present: soft, normal bowel sounds. Absent: distended, tenderness, guarding, rebound, rigid, pulsatile mass - Rectal Rectal exam: Present: deferred - Extremities Exam Extremities exam: Present: normal inspection, full ROM, normal capillary refill , other (2+ pulses noted in the bilateral upper, lower extremities. Compartments soft. No long bony tenderness. The pelvis is stable.). Absent: pedal edema, joint swelling, calf tenderness - Back Exam Back exam: Present: normal inspection, full ROM. Absent: tenderness, CVA tenderness (R), paraspinal tenderness, vertebral tenderness - Neurological Exam Neurological exam: Present: alert, oriented X3 - Psychiatric Psychiatric exam: Present: normal affect, normal mood - Skin Skin exam: Present: warm, dry, intact, normal color. Absent: rash ED Course Vital Signs 01/09/18 01/09/18 11:05 11:51 Temperature 99.3 F Pulse Rate 117 H 106 H Respiratory 18 Rate Blood Pressure 237/125 188/105 O2 Sat by Pulse 95 Oximetry ED Medical Decision Making - Lab Data Vital Signs 01/09/18 01/09/18 11:05 11:51 Temperature 99.3 F Pulse Rate 117 H 106 H Respiratory 18 Rate Blood Pressure 237/125 188/105 O2 Sat by Pulse 95 Oximetry - Medical Decision Making Interventional diagnosis, including but not limited to: Medication noncompliance , caffeine ingestion, blood pressure that is not symptomatic Assessment and plan: 62-year-old gentleman with a complaint of painless high blood pressure. He did not take his metoprolol this morning, and drink coffee. He is given 100 mg of metoprolol, he is typically supposed to take 75 mg of metoprolol. His heart rate has decreased to 101, 103 bpm, and his blood pressure is currently 157/75. He reports that he feels very comfortable, and he is smiling and playing on a cellular phone. He denies DVT, pulmonary embolus risk factors and all medical complaints at this time. He has been resting in the ER for a few hours without clinical decompensation. I have advised the patient to discontinue or decrease caffeine consumption, and to adhere to his outpatient blood pressure medications. Critical care attestation.: If time is entered above; I have spent that time in minutes in the direct care of this critically ill patient, excluding procedure time. ED Disposition Clinical Impression: HTN (hypertension) Disposition: DC-01 TO HOME OR SELFCARE Is pt being admited?: No Does the pt Need Aspirin: No Condition: Stable Instructions: Hypertension (ED) Additional Instructions: Discontinue or decrease consumption of caffeinated beverages. Make certain terming compliant with antihypertensive medications. Follow up with the primary care doctor or interpreter for your elevated blood pressure within 2 weeks. Long-term complications of hypertension and elevated blood pressure includes stroke, heart attack, disability, paralysis, loss of quality of life. Return to the ER right away with new pain, worsening pain, migration of pain, projectile vomiting, change in mental status, confusion, chest pain, inability to tolerate liquid feeds. Referrals: PRIMARY CARE, [Primary Care Provider] - 3-5 Days IESHA ALONSO MD [Staff Physician] - 3-5 Days
[2018-01-09 13:13] VITALS: BP 157/93
== END 2018-01-09 13:16 | disposition home or self-care (01) ==
LOC: ED 11:04
DX: I10 Essential (primary) hypertension (principal); E11.9 Type 2 diabetes mellitus without complications; E78.00 Pure hypercholesterolemia, unspecified; Z86.73 Personal history of transient ischemic attack (TIA), and cerebral infarction without residual deficits; Z95.818 Presence of other cardiac implants and grafts; Z87.891 Personal history of nicotine dependence
CPT/HCPCS: 99282

== ENCOUNTER 2019-01-13 10:22 | Emergency (ER) | payer SELFPAY ==
[2019-01-13 10:33] VITALS: BP 204/109
== END 2019-01-13 13:05 | disposition left against medical advice (07) ==
LOC: ED 10:22
DX: I10 Essential (primary) hypertension (principal); Z53.21 Procedure and treatment not carried out due to patient leaving prior to being seen by health care provider

== ENCOUNTER 2020-01-04 14:38 | Emergency (ER) | payer SELFPAY ==
--- NOTE | 2020-01-04 14:42 | Emergency Department Report ---
ED General Adult HPI - General Chief complaint: Weakness Stated complaint: STROKE PUI?: No Time Seen by Provider: 01/04/20 14:40 Source: patient, EMS (Verbal report received from emergency medical services. EMS documentation not available at time of chart dictation ), RN notes reviewed, old records reviewed Mode of arrival: Stretcher Limitations: Altered Mental Status, Physical Limitation - History of Present Illness Initial comments: The patient is a 64-year-old gentleman. Past medical history includes heart disease, hypertension, diabetes, status post CABG, and alcoholism. He is brought to the hospital by emergency medical services as a possible code stroke. His last known well time is not known explicitly. Strokelike symptoms include slurred speech, confusion, and possible facial droop and left-sided weakness on the arm. As per verbal report from EMS, patient was found in his stretcher at home by his daughter. His last known well time was sometime yesterday afternoon, the exact last known well time is not known. EMS states there was no sign of trauma. The patient initially denied trauma. Accu-Chek is reportedly within normal limits as per EMS. He is found to have slurred speech and facial droop. He is also found to have left-sided weakness. Code stroke is called overhead. Noncontrast CT scan of the brain showed an acute subdural hematoma with some shift without evidence of herniation. On my initial assessment, the patient denied falling. After the aforementioned CT scan had resulted, went back to reevaluate the patient, and he tells me that he fell earlier on this morning. Therefore, cervical collar ordered, CT scan of the cervical spine ordered. Stroke labs pending, Accu-Chek in the ER pending. Patient found to be somewhat hypertensive and tachycardic, labetalol ordered. The patient is awake, speaking with slurred speech, moving his right side spontaneously, and opening of his eyes spontaneously. He tells me he did not take aspirin or Plavix today or yesterday. He did consume alcohol today. The patient denies physical pain at this time. The patient is intoxicated and altered. He is not able to describe the qualitative nature of his symptoms, exacerbating, relieving factors, or radiation thereof. -: unknown Quality: other Consistency: other Improves with: other Worsens with: other Associated Symptoms: other - Related Data Home Medications Medication Instructions Recorded Confirmed Last Taken Aspirin [Aspirin BABY CHEW TAB] 162 mg PO QDAY 01/09/18 01/09/18 Unknown Clopidogrel Bisulfate [Plavix] 75 mg PO DAILY 01/09/18 01/09/18 Unknown Glimepiride [Amaryl] 1 mg PO QDAY 01/09/18 01/09/18 Unknown Metoprolol [Lopressor TAB] 50 mg PO Q12H 01/09/18 01/09/18 Unknown Pravastatin [Pravachol] 20 mg PO DAILY 01/09/18 01/09/18 Unknown hydroCHLOROthiazide [HCTZ] 25 mg PO QDAY 01/09/18 01/09/18 Unknown Allergies Allergy/AdvReac Type Severity Reaction Status Date / Time No Known Allergies Allergy Verified 11/15/16 16:51 ED Review of Systems ROS: Stated complaint: STROKE Other details as noted in HPI Comment: Unobtainable due to pts medical conditions Respiratory: denies: see HPI Gastrointestinal: denies: abdominal pain Neurological: weakness, confusion ED Past Medical Hx - Past Medical History Hx Hypertension: Yes Hx CVA: Yes Hx Congestive Heart Failure: No Hx Diabetes: Yes Hx Asthma: No Hx COPD: No Hx HIV: No Additional medical history: High Cholesterol - Surgical History Hx Coronary Stent: Yes (2018) - Social History Smoking Status: Former Smoker Substance Use Type: Alcohol - Medications Home Medications: Home Medications Medication Instructions Recorded Confirmed Last Taken Type Aspirin [Aspirin BABY CHEW TAB] 162 mg PO QDAY 01/09/18 01/09/18 Unknown History Clopidogrel Bisulfate [Plavix] 75 mg PO DAILY 01/09/18 01/09/18 Unknown History Glimepiride [Amaryl] 1 mg PO QDAY 01/09/18 01/09/18 Unknown History Metoprolol [Lopressor TAB] 50 mg PO Q12H 01/09/18 01/09/18 Unknown History Pravastatin [Pravachol] 20 mg PO DAILY 01/09/18 01/09/18 Unknown History hydroCHLOROthiazide [HCTZ] 25 mg PO QDAY 01/09/18 01/09/18 Unknown History ED Physical Exam - General Limitations: Altered Mental Status, Physical Limitation General appearance: other (Patient is sleepy but arousable) - Head Head exam: Present: atraumatic, normocephalic - Eye Eye exam: Present: normal appearance, PERRL - ENT ENT exam: Present: normal exam, normal orophraynx, mucous membranes moist, normal external ear exam, other (There is a left-sided facial droop) - Neck Neck exam: Present: normal inspection. Absent: tenderness, meningismus - Respiratory Respiratory exam: Present: normal lung sounds bilaterally. Absent: respiratory distress - Cardiovascular Cardiovascular Exam: Present: normal rhythm, tachycardia, normal heart sounds. Absent: bradycardia, irregular rhythm, systolic murmur, diastolic murmur, rubs, gallop - GI/Abdominal GI/Abdominal exam: Present: soft. Absent: distended, tenderness, guarding, rebound, rigid, pulsatile mass - Rectal Rectal exam: Present: deferred - Extremities Exam Extremities exam: Present: normal inspection, other (2+ pulses noted in the bilateral upper and lower extremities. There is no palpable cord. negative Homans sign. Muscular compartments are soft. The pelvis is stable.). Absent: tenderness - Back Exam Back exam: Present: normal inspection, full ROM. Absent: tenderness, CVA tenderness (R), CVA tenderness (L), paraspinal tenderness, vertebral tenderness - Neurological Exam Neurological exam: Present: altered, other (There is left-sided facial droop. There is slurred speech. There is 5 out of 5 strength in right arm and right leg. Sensation is intact to light touch right arm and right leg. There is 4 out of 5 strength left arm. There is 3 out of 5 strength left leg. There is decreased sensation to light touch in the left leg.) - Psychiatric Psychiatric exam: Present: anxious - Skin Skin exam: Present: warm, dry, intact, normal color. Absent: rash ED Course Vital Signs 01/04/20 01/04/20 01/04/20 14:54 15:00 15:16 Pulse Rate 108 H 107 H 98 H Respiratory 15 17 13 Rate Blood Pressure 182/88 184/93 O2 Sat by Pulse 98 98 99 Oximetry 01/04/20 01/04/20 15:30 15:46 Pulse Rate 100 H 95 H Respiratory 13 13 Rate Blood Pressure 151/84 161/84 O2 Sat by Pulse 98 100 Oximetry - Reevaluation(s) Reevaluation #1: 01/04/20 15:10 Differential diagnosis, including but not limited to: Traumatic subdural bleed, cervical spine injury, electrolyte derangement, alcohol intoxication Assessment and plan: 64-year-old gentleman who initially presented as a code stroke, last known well time is yesterday as per collateral information from EMS, initially there was no report of trauma, after initial CT scan of the brain was obtained, patient endorsed additional history of trauma. Patient to be placed in a cervical collar, CT scan of the cervical spine emergently ordered. Appropriate laboratory studies ordered, labetalol ordered for tachycardia and hypertension, systolic 185. Laboratory studies pending, n.p.o. at this time, Keppra will be ordered. We have reached out to our local trauma center, [place], they inform me that they do not have ICU or neuro critical care beds. We will next reach out to our local trauma facilities within the [facility] This is a traumatic bleed, and we do not have capability of managing this patient, as we do not have neurology critical care, neurosurgery, or trauma surgery available for consultation in this emergency room. Reevaluation #2: 01/04/20 15:18 Discussed history, physical, current and pertinent imaging studies with trauma surgeon at [facility], Dr. García, she has accepted the patient as an ER to ER transfer. CT scan cervical spine pending, laboratory studies, ancillary tests pending at this time. We will also discussed with the patient's . Reevaluation #3: 01/04/20 15:28 Discussed the details of the patient's case with his biological daughter, who verbalized understanding, she is 21, and she gave consent for transportation Reevaluation #4: 01/04/20 15:47 Laboratory studies reviewed and appreciated, most likely hypovolemic hyponatremia, likely secondary to alcohol/beer podomania We will give gentle bolus of sodium chloride, normal saline, and replete magnesium. Will defer to the receiving team to further manage the patient's electrolyte derangements ED Medical Decision Making - Lab Data Result diagrams: 01/04/20 14:55 01/04/20 14:55 Lab Results 01/04/20 01/04/20 01/04/20 Range/Units 14:55 14:55 14:55 WBC 9.7 (4.5-11.0) K/mm3 RBC 3.99 (3.65-5.03) M/mm3 Hgb 13.1 (11.8-15.2) gm/dl Hct 39.3 (35.5-45.6) % MCV 99 H (84-94) fl MCH 33 H (28-32) pg MCHC 33 (32-34) % RDW 15.0 (13.2-15.2) % Plt Count 254 (140-440) K/mm3 Lymph % (Auto) 9.5 L (13.4-35.0) % Newton % (Auto) 13.8 H (0.0-7.3) % Eos % (Auto) 0.7 (0.0-4.3) % Baso % (Auto) 0.8 (0.0-1.8) % Lymph # 0.9 L (1.2-5.4) K/mm3 Newton # 1.3 H (0.0-0.8) K/mm3 Eos # 0.1 (0.0-0.4) K/mm3 Baso # 0.1 (0.0-0.1) K/mm3 Seg Neutrophils % 75.2 H (40.0-70.0) % Seg Neutrophils # 7.3 (1.8-7.7) K/mm3 PT 12.8 (12.2-14.9) Sec. INR 0.95 (0.87-1.13) APTT 24.9 (24.2-36.6) Sec. Thrombin Time (15.1-19.6) Sec. Sodium 123 L (137-145) mmol/L Potassium 4.6 (3.6-5.0) mmol/L Chloride 84.4 L (98-107) mmol/L Carbon Dioxide 20 L (22-30) mmol/L Anion Gap 23 mmol/L BUN 12 (9-20) mg/dL Creatinine 0.8 (0.8-1.3) mg/dL Estimated GFR > 60 ml/min BUN/Creatinine Ratio 15 % Glucose 230 H (75-100) mg/dL Calcium 8.9 (8.4-10.2) mg/dL Magnesium (1.7-2.3) mg/dL Total Creatine Kinase (55-170) units/L Troponin T < 0.010 (0.00-0.029) ng/mL Salicylates (2.8-20.0) mg/dL Acetaminophen (10.0-30.0) ug/mL Plasma/Serum Alcohol (0-0.07) % 01/04/20 01/04/20 01/04/20 Range/Units 14:55 14:55 14:55 WBC (4.5-11.0) K/mm3 RBC (3.65-5.03) M/mm3 Hgb (11.8-15.2) gm/dl Hct (35.5-45.6) % MCV (84-94) fl MCH (28-32) pg MCHC (32-34) % RDW (13.2-15.2) % Plt Count (140-440) K/mm3 Lymph % (Auto) (13.4-35.0) % Newton % (Auto) (0.0-7.3) % Eos % (Auto) (0.0-4.3) % Baso % (Auto) (0.0-1.8) % Lymph # (1.2-5.4) K/mm3 Newton # (0.0-0.8) K/mm3 Eos # (0.0-0.4) K/mm3 Baso # (0.0-0.1) K/mm3 Seg Neutrophils % (40.0-70.0) % Seg Neutrophils # (1.8-7.7) K/mm3 PT (12.2-14.9) Sec. INR (0.87-1.13) APTT (24.2-36.6) Sec. Thrombin Time 15.3 (15.1-19.6) Sec. Sodium (137-145) mmol/L Potassium (3.6-5.0) mmol/L Chloride (98-107) mmol/L Carbon Dioxide (22-30) mmol/L Anion Gap mmol/L BUN (9-20) mg/dL Creatinine (0.8-1.3) mg/dL Estimated GFR ml/min BUN/Creatinine Ratio % Glucose (75-100) mg/dL Calcium (8.4-10.2) mg/dL Magnesium 1.60 L (1.7-2.3) mg/dL Total Creatine Kinase 204 H (55-170) units/L Troponin T (0.00-0.029) ng/mL Salicylates 0.8 L (2.8-20.0) mg/dL Acetaminophen (10.0-30.0) ug/mL Plasma/Serum Alcohol (0-0.07) % 01/04/20 01/04/20 Range/Units 14:55 14:55 WBC (4.5-11.0) K/mm3 RBC (3.65-5.03) M/mm3 Hgb (11.8-15.2) gm/dl Hct (35.5-45.6) % MCV (84-94) fl MCH (28-32) pg MCHC (32-34) % RDW (13.2-15.2) % Plt Count (140-440) K/mm3 Lymph % (Auto) (13.4-35.0) % Newton % (Auto) (0.0-7.3) % Eos % (Auto) (0.0-4.3) % Baso % (Auto) (0.0-1.8) % Lymph # (1.2-5.4) K/mm3 Newton # (0.0-0.8) K/mm3 Eos # (0.0-0.4) K/mm3 Baso # (0.0-0.1) K/mm3 Seg Neutrophils % (40.0-70.0) % Seg Neutrophils # (1.8-7.7) K/mm3 PT (12.2-14.9) Sec. INR (0.87-1.13) APTT (24.2-36.6) Sec. Thrombin Time (15.1-19.6) Sec. Sodium (137-145) mmol/L Potassium (3.6-5.0) mmol/L Chloride (98-107) mmol/L Carbon Dioxide (22-30) mmol/L Anion Gap mmol/L BUN (9-20) mg/dL Creatinine (0.8-1.3) mg/dL Estimated GFR ml/min BUN/Creatinine Ratio % Glucose (75-100) mg/dL Calcium (8.4-10.2) mg/dL Magnesium (1.7-2.3) mg/dL Total Creatine Kinase (55-170) units/L Troponin T (0.00-0.029) ng/mL Salicylates (2.8-20.0) mg/dL Acetaminophen 5.0 L (10.0-30.0) ug/mL Plasma/Serum Alcohol < 0.01 (0-0.07) % Vital Signs 01/04/20 01/04/20 01/04/20 14:54 15:00 15:16 Pulse Rate 108 H 107 H 98 H Respiratory 15 17 13 Rate Blood Pressure 182/88 184/93 O2 Sat by Pulse 98 98 99 Oximetry 01/04/20 01/04/20 15:30 15:46 Pulse Rate 100 H 95 H Respiratory 13 13 Rate Blood Pressure 151/84 161/84 O2 Sat by Pulse 98 100 Oximetry - Radiology Data Radiology results: report reviewed, image reviewed INDICATION: Stroke symptoms. TECHNIQUE: Routine CT head without contrast. All CT scans at this location are performed using CT dose reduction for ALARA by means of automated exposure control. COMPARISON: None. FINDINGS: BRAIN / INTRACRANIAL CONTENTS: There is a right cerebral convexity subdural hematoma that measures about 1.5 cm in greatest [id number] dimension. There is associated mild leftward midline shift with effacement of the right lateral vent ricle. There is no appreciable brain edema. There is a chronic infarct in the right cerebellar hemisphere. ORBITS: No significant abnormality of visualized orbits. SINUSES / MASTOIDS: No significant abnormality of visualized sinuses and mastoid air cells. ADDITIONAL FINDINGS: None. IMPRESSION: 1. Acute right cerebral convexity subdural hematoma with resultant mild mass effect and leftward midline shift. Findings discussed with Dr. Anderson at 1:57 PM on 01/04/2020. Signer Name: Angel Hassan MD Signed: 01/04/2020 1:58 PM Workstation Name: [email or web address] As per radiology interpretation, CT scan of the cervical spine negative for acute traumatic injury Critical Care Time: Yes Critical care time in (mins) excluding proc time.: 60 Critical care attestation.: If time is entered above; I have spent that time in minutes in the direct care of this critically ill patient, excluding procedure time. ED Disposition Clinical Impression: Subdural bleeding, Hyponatremia, Hypomagnesemia Disposition: [id number]/TX-[id number]-TRM GEN HOSP IP Is pt being admited?: No Does the pt Need Aspirin: No Condition: Critical Referrals: PRIMARY CARE, [Primary Care Provider] - 3-5 Days
[2020-01-04] MEDS ORDERED: levETIRAcetam 1000 MG/NS 0.75% 1,000 MG/100 ML BAG IV ONE (15:01)
--- NOTE | 2020-01-04 15:02 | Emergency Department Report ---
ED Neuro Deficit HPI - General Chief Complaint: Neuro Symptoms/Deficit Stated Complaint: STROKE Time Seen by Provider: 01/04/20 14:40 Source: EMS Mode of arrival: Stretcher Limitations: Altered Mental Status - History of Present Illness Initial Comments: [facility] Date of Service: 01/04/2020 14:41:15 Impression: SDH Comments/Sign-Out: 64 year old male with a history alcohol abuse who presents to the hospital because of left side weakness. Presentation is secondary to SDH likely from his falls. Mechanism of Stroke: Not Clear Metrics: Last Known Well: Unknown [employer] Notification Time: 01/04/2020 14:40:41 Arrival Time: 01/04/2020 14:38:00 Stamp Time: 01/04/2020 14:41:15 Time First Login Attempt: 01/04/2020 14:48:00 Video Start Time: 01/04/2020 14:48:00 Symptoms: Left side weakness NIHSS Start Assessment Time: 01/04/2020 14:50:48 Patient is not a candidate for tPA. Patient was not deemed candidate for tPA thrombolytics because of Current or Previous ICH. Video End Time: 01/04/2020 14:56:12 CT head was reviewed and results were: Right SDH Clinical Presentation is not Suggestive of Large Vessel Occlusive Disease ED Physician notified of diagnostic impression and management plan on 01/04/2020 14:55:00 Our recommendations are outlined below. Recommendations: Activate Stroke Protocol Admission/Order Set Stroke/Telemetry Floor Neuro Checks Bedside Swallow Eval DVT Prophylaxis IV Fluids, Normal Saline Head of Bed 30 Degrees Euglycemia and Avoid Hyperthermia (PRN Acetaminophen) Hold Antithrombotics for Now SBP < 140 Neurosurgery consult Sign Out: Discussed with Emergency Department Provider History of Present Illness: Patient is a 64 year old Male. Patient was brought by EMS for symptoms of Left side weakness 64 year old male with a history of alcohol abuse who presents to the hospital after his daughter found him in his recliner with left side weakness and incontinent of urine. Patient states he fell earlier today around noon. CT brain showed a right SDH. Examination: 1A: Level of Consciousness - Alert; keenly responsive + 0 1B: Ask Month and Age - Both Questions Right + 0 1C: Blink Eyes & Squeeze Hands - Performs Both Tasks + 0 2: Test Horizontal Extraocular Movements - Forced Gaze Palsy: Cannot Be Overcome + 2 3: Test Visual Magallanes - No Visual Loss + 0 4: Test Facial Palsy (Use Grimace if Obtunded) - Partial paralysis (lower face) + 2 5A: Test Left Arm Motor Drift - Drift, hits bed + 2 5B: Test Right Arm Motor Drift - Drift, but doesn't hit bed + 1 6A: Test Left Leg Motor Drift - Drift, hits bed + 2 6B: Test Right Leg Motor Drift - Drift, hits bed + 2 7: Test Limb Ataxia (FNF/Heel-Frank) - No Ataxia + 0 8: Test Sensation - Normal; No sensory loss + 0 9: Test Language/Aphasia - Mild-Moderate Aphasia: Some Obvious Changes, Without Significant Limitation + 1 10: Test Dysarthria - Severe Dysarthria: Unintelligble Slurring or Out of Proportion to Aphasia + 2 11: Test Extinction/Inattention - Visual/tactile/auditory/spatial/personal inattention + 1 NIHSS Score: 15 Due to the immediate potential for life-threatening deterioration due to underlying acute neurologic illness, I spent 35 minutes providing critical care. This time includes time for face to face visit via telemedicine, review of medical records, imaging studies and discussion of findings with providers, the patient and/or family. Dr Lily Lozano [facility] Case [id number] - Related Data Home Medications: Home Medications Medication Instructions Recorded Confirmed Last Taken Aspirin [Aspirin BABY CHEW TAB] 162 mg PO QDAY 01/09/18 01/09/18 Unknown Clopidogrel Bisulfate [Plavix] 75 mg PO DAILY 01/09/18 01/09/18 Unknown Glimepiride [Amaryl] 1 mg PO QDAY 01/09/18 01/09/18 Unknown Metoprolol [Lopressor TAB] 50 mg PO Q12H 01/09/18 01/09/18 Unknown Pravastatin [Pravachol] 20 mg PO DAILY 01/09/18 01/09/18 Unknown hydroCHLOROthiazide [HCTZ] 25 mg PO QDAY 01/09/18 01/09/18 Unknown Allergies/Adverse Reactions: Allergies Allergy/AdvReac Type Severity Reaction Status Date / Time No Known Allergies Allergy Verified 11/15/16 16:51 ED Review of Systems ROS: Stated complaint: STROKE Other details as noted in HPI ED Past Medical Hx - Past Medical History Hx Hypertension: Yes Hx CVA: Yes Hx Congestive Heart Failure: No Hx Diabetes: Yes Hx Asthma: No Hx COPD: No Hx HIV: No Additional medical history: High Cholesterol - Surgical History Hx Coronary Stent: Yes (2017) - Social History Smoking Status: Former Smoker Substance Use Type: Alcohol - Medications Home Medications: Home Medications Medication Instructions Recorded Confirmed Last Taken Type Aspirin [Aspirin BABY CHEW TAB] 162 mg PO QDAY 01/09/18 01/09/18 Unknown History Clopidogrel Bisulfate [Plavix] 75 mg PO DAILY 01/09/18 01/09/18 Unknown History Glimepiride [Amaryl] 1 mg PO QDAY 01/09/18 01/09/18 Unknown History Metoprolol [Lopressor TAB] 50 mg PO Q12H 01/09/18 01/09/18 Unknown History Pravastatin [Pravachol] 20 mg PO DAILY 01/09/18 01/09/18 Unknown History hydroCHLOROthiazide [HCTZ] 25 mg PO QDAY 01/09/18 01/09/18 Unknown History ED Neuro Physical Exam - General Limitations: Altered Mental Status Suspected Stroke: Yes - NIHSS Assessment Interval: Baseline 1a. Level of Consciousness: alert/keenly responsive 1b. LOC Questions: answers both correctly 1c. LOC Commands: performs tasks correctly 2. Best Gaze: forced deviation 3. Visual: no visual loss 4. Facial Palsy: partial paralysis 5b. Motor Arm Right: drift 5a. Motor Arm Left: some gravity effort 6a. Motor Leg Left: some gravity effort 6b. Motor Leg Right: some gravity effort 7. Limb Ataxia: absent 8. Sensory: normal 9. Best Language: mild/moderate aphasia 10. Dysarthria: severe dysarthria 11. Extinction/Inattention: visual/tactile inattention Total Score: 15 Stroke Severity: Moderate Stroke Critical care attestation.: If time is entered above; I have spent that time in minutes in the direct care of this critically ill patient, excluding procedure time. ED Disposition Clinical Impression: Subdural bleeding Disposition: OP ADMIT IP TO THIS HOSP Is pt being admited?: Yes Does the pt Need Aspirin: No Condition: Stable
--- NOTE | 2020-01-04 15:02 | Cat Scan Report ---
CT head/brain wo con INDICATION: Stroke symptoms. TECHNIQUE: Routine CT head without contrast. All CT scans at this location are performed using CT dos e reduction for ALARA by means of automated exposure control. COMPARISON: None. FINDINGS: BRAIN / INTRACRANIAL CONTENTS: There is a right cerebral convexity subdural hematoma that measures ab out 1.5 cm in greatest [id number] dimension. There is associated mild leftward midline shift with e ffacement of the right lateral ventricle. There is no appreciable brain edema. There is a chronic infarct in the right cerebellar hemisphere. ORBITS: No significant abnormality of visualized orbits. SINUSES / MASTOIDS: No significant abnormality of visualized sinuses and mastoid air cells. ADDITIONAL FINDINGS: None. IMPRESSION: 1. Acute right cerebral convexity subdural hematoma with resultant mild mass effect and leftward midl ine shift. Findings discussed with Dr. Anderson at 1:57 PM on 01/04/2020. Signer Name: Angel Hassan MD Signed: 01/04/2020 2:58 PM Workstation Name: [id number]
[2020-01-04 15:16] LABS: Basophils # (Auto) 0.1 K/mm3 (0.0-0.1); Basophils % (Auto) 0.8 % (0.0-1.8); Eosinophils # (Auto) 0.1 K/mm3 (0.0-0.4); Eosinophils % (Auto) 0.7 % (0.0-4.3); Hematocrit 39.3 % (35.5-45.6); Hemoglobin 13.1 gm/dl (11.8-15.2); Lymphocytes # (Auto) 0.9 K/mm3 (1.2-5.4); Lymphocytes % (Auto) 9.5 % (13.4-35.0); Mean Corpuscular HGB Conc 33 % (32-34); Mean Corpuscular Volume 99 fl (84-94); Monocytes # (Auto) 1.3 K/mm3 (0.0-0.8); Monocytes % (Auto) 13.8 % (0.0-7.3); Platelet Count 254 K/mm3 (140-440); Red Blood Count 3.99 M/mm3 (3.65-5.03)
[2020-01-04 15:31] LABS: INR 0.95 (0.87-1.13)
[2020-01-04 15:32] LABS: Partial Thromboplastin Time 24.9 Sec. (24.2-36.6)
[2020-01-04 15:43] LABS: BUN/Creatinine Ratio 15; Blood Urea Nitrogen 12 mg/dL (9-20); Calcium 8.9 mg/dL (8.4-10.2); Hemolysis Index 6
[2020-01-04] MEDS ORDERED: MAGNESIUM SULFATE 2 GM/50 ML BAG IV ONE (15:46)
[2020-01-04] MEDS ORDERED: SODIUM CHLORIDE 0.9% 250ML 250 ML IV ONE (15:46)
--- NOTE | 2020-01-04 15:48 | Cat Scan Report ---
CT CERVICAL SPINE WITHOUT CONTRAST INDICATION / CLINICAL INFORMATION: Trauma. Patient fell sustaining neck injury. Neck pain. TECHNIQUE: Axial CT images were obtained through the cervical spine. Sagittal and coronal reformatted images wer e produced. All CT scans at this location are performed using CT dose reduction for ALARA by means of automated exposure control. COMPARISON: None available. FINDINGS: ALIGNMENT: There is a mild leftward curvature of the cervical spine without evidence of scoliosis. No additional abnormalities of alignment are identified. There is no indication of traumatic subluxatio n. VERTEBRAE: No indication of fracture. Uncovertebral arthropathy is present at multiple levels. Anteri or osteophyte formation is also observed at multiple levels. DISC SPACES: Loss of disc height is seen throughout the cervical region. INDIVIDUAL LEVEL ANALYSIS: C2-3: Right worse than left facet arthropathy is demonstrated. No additional abnormality. C3-4: Loss of disc height is noted. Anterior and mild posterior osteophyte formation is observed. Sug gestion of a central disc protrusion flattening the thecal sac. Uncovertebral arthropathy contributes to moderate bilateral neuroforaminal stenosis at the C4 nerve root level. C4-5: Loss of disc height is noted. Anterior osteophyte formation is demonstrated. Bilateral uncovert ebral arthropathy is observed. There is mild right-sided foraminal stenosis at the C5 nerve root leve l. A small central disc protrusion is identified. Central spinal canal appears to be adequately maint ained. C5-6: Loss of disc height is noted. Anterior osteophyte formation is observed. Bilateral uncovertebra l arthritic changes are noted. Mild right-sided neuroforaminal stenosis is evident. Central spinal ca nal and left C6 nerve root neuroforamina are adequate in size. C6-7: Loss of disc height is noted. Anterior and mild posterior osteophyte formation is observed. César ateral uncovertebral arthropathy is evident. Central spinal canal and neuroforamina are adequate in s ize. C7-T1: Loss of disc height is noted. Anterior osteophyte formation is observed. Mild posterior osteop hyte is also identified. Facet arthritic changes are present at the cervicothoracic junction. In spit e of these degenerative changes Central spinal canal and neuroforamina appear to be adequately mainta ined. CRANIOCERVICAL JUNCTION:No significant abnormality. SPINAL CANAL: No indication of bony central canal stenosis. PARASPINAL SOFT TISSUES: No significant abnormality. LUNG APICES: The lung apices are largely excluded. IMPRESSION: 1. No indication of fracture or traumatic subluxation. 2. Widespread cervical spondylosis with right worse than left neuroforaminal narrowing at multiple le vels. Signer Name: Kostas Gomez MD Signed: 01/04/2020 3:44 PM Workstation Name: [id number]
[2020-01-04 16:00] VITALS: BP 161/84
== END 2020-01-04 16:05 | disposition short-term general hospital (02) ==
LOC: ED 14:38
DX: I62.00 Nontraumatic subdural hemorrhage, unspecified (principal); E87.1 Hypo-osmolality and hyponatremia; E83.42 Hypomagnesemia; I10 Essential (primary) hypertension; E11.65 Type 2 diabetes mellitus with hyperglycemia; Z86.73 Personal history of transient ischemic attack (TIA), and cerebral infarction without residual deficits; Z79.82 Long term (current) use of aspirin; Z79.899 Other long term (current) drug therapy; Z87.891 Personal history of nicotine dependence
CPT/HCPCS: 36415; 70450; 72125; 80048; 82550; 83735; 84443; 84484; 85025; 85610; 85670; 85730; 96374; 96375; 99291; J1953; J3475; J7050; 80320; G0480